=== PATIENT | female | born 1995 | race Caucasian/White ===

== ENCOUNTER 2017-09-09 19:31 | Emergency (ER) | payer BC, MEDICAID ==
[2017-09-09 19:54] VITALS: BP 120/74; PULSE 98; RESP 18; TEMP 98.2; O2SAT 100
[2017-09-09 20:23] LABS: URINE APPEARANCE CLEAR (CLEAR); URINE BILIRUBIN NEGATIVE (NEGATIVE); URINE BLOOD NEGATIVE (NEGATIVE); URINE COLOR YELLOW (YELLOW); URINE GLUCOSE (UA) NEGATIVE (NEGATIVE); URINE KETONE NEGATIVE (NEGATIVE); URINE LEUKOCYTE ESTERASE TRACE Leu/uL (NEGATIVE); URINE PROTEIN NEGATIVE mg/dL (<30 mg/dL); URINE UROBILINOGEN 0.2 E.U./dL (<1 E.U./dL)
[2017-09-09 20:25] LABS: URINE EPITHELIAL CELLS 0 - 2 /hpf (0-5); URINE RBC 0 - 2 /hpf (0-2)
[2017-09-09 20:26] LABS: URINE BACTERIA SMALL (NEG)
[2017-09-09 21:08] LABS: BASO # 0.02 K/mm3 (0.0-2.0); BASO % 0.2 % (0.0-3.0); EOS % 0.1 % (1.5-5.0); GRAN # 6.37 (1.4-6.5); LYMPH # 2.1 (1.2-3.4); LYMPH % 22.8 % (22.0-35.0); MEAN CORPUSCULAR HEMOGLOBIN 27.6 pg (25.0-35.0); MEAN CORPUSCULAR HGB CONC 34.1 g/dl (31.0-37.0); MEAN PLATELET VOLUME 9.3 fl (7.0-11.0); MONO # 0.6 (0.1-0.6); MONO % 6.9 % (1.0-6.0); RED CELL DISTRIBUTION WIDTH 12.3 % (11.5-14.5); WHITE BLOOD COUNT 9.1 10^3/ul (4.5-11.0)
--- NOTE | 2017-09-09 21:11 | ED PDOC ---
Arrival/HPI <Ata Zhao - Last Filed: 09/09/17 22:49> - General Historian: Patient - History of Present Illness Symptom Onset: Sudden Symptom Course: Unchanged Activities at Onset: Rest Context: Home <Makenzie Goodman PA-C - Last Filed: 09/09/17 23:29> - General Chief Complaint: Anxiety Time Seen by Provider: 09/09/17 20:06 - History of Present Illness Narrative History of Present Illness (Text): 09/09/17 21:00 A 21 year old female, whose past medical history includes depression, compliant with her Seroquel medication, presents to the emergency department complaining of feeling lonely, sad and depressed. Patient feels like she is not treated well by parents. Patient denies any suicidal ideation, homicidal ideation, auditory hallucinations. Denies any headache, fever, chest pain, shortness of breath, abdominal pain or any other complaints at this time. (Makenzie Goodman PA-C) Past Medical History - Provider Review Nursing Documentation Reviewed: Yes - Psychiatric Hx Depression: Yes Hx Substance Use: No <Makenzie Goodman PA-C - Last Filed: 09/09/17 23:29> Family/Social History - Physician Review Nursing Documentation Reviewed: Yes Family/Social History: No Known Family HX Smoking Status: n Hx Alcohol Use: No Hx Substance Use: No <Makenzie Goodman PA-C - Last Filed: 09/09/17 23:29> Allergies/Home Meds <Ata Zhao - Last Filed: 09/09/17 22:49> <Makenzie Goodman PA-C - Last Filed: 09/09/17 23:29> Allergies/Adverse Reactions: Allergies Penicillins Allergy (Verified 09/09/17 19:54) RASH Home Medications: Home Meds Medication Instructions Recorded Confirmed QUEtiapine [SEROquel] 25 mg PO HS 09/09/17 09/09/17 Review of Systems - Physician Review All systems were reviewed & negative as marked: Yes - Review of Systems Constitutional: absent: Fevers Respiratory: absent: SOB Cardiovascular: absent: Chest Pain Gastrointestinal: absent: Abdominal Pain Neurological: absent: Headache Psychiatric: Depression. absent: Suicidal Ideation, Other (homicidal ideation) <Makenzie Goodman PA-C - Last Filed: 09/09/17 23:29> Physical Exam Vital Signs Reviewed: Yes Temperature: Afebrile Blood Pressure: Normal Pulse: Regular Respiratory Rate: Normal Appearance: Positive for: Well-Appearing, Non-Toxic, Comfortable Pain Distress: None Mental Status: Positive for: Alert and Oriented X 3 - Systems Exam Head: Present: Atraumatic, Normocephalic Pupils: Present: PERRL Extroacular Muscles: Present: EOMI Conjunctiva: Present: Normal Mouth: Present: Moist Mucous Membranes Neck: Present: Normal Range of Motion Respiratory/Chest: Present: Clear to Auscultation, Good Air Exchange. No: Respiratory Distress, Accessory Muscle Use Cardiovascular: Present: Regular Rate and Rhythm, Normal S1, S2. No: Murmurs Abdomen: Present: Normal Bowel Sounds. No: Tenderness, Distention, Peritoneal Signs Back: Present: Normal Inspection Upper Extremity: Present: Normal Inspection. No: Cyanosis, Edema Lower Extremity: Present: Normal Inspection. No: Edema Neurological: Present: GCS=15, CN II-XII Intact, Speech Normal Skin: Present: Warm, Dry, Normal Color. No: Rashes Psychiatric: Present: Alert, Oriented x 3, Depressed Mood <Makenzie Goodman PA-C - Last Filed: 09/09/17 23:29> Vital Signs Temp Pulse Resp BP Pulse Ox 09/09/17 19:43 98.2 F 98 H 18 120/74 100 Medical Decision Making <Ata Zhao - Last Filed: 09/09/17 22:49> - Lab Interpretations I have reviewed the lab results: Yes - EKG Interpretation Interpreted by ED Physician: Yes Type: 12 lead EKG <Makenzie Goodman PA-C - Last Filed: 09/09/17 23:29> ED Course and Treatment: 09/09/17 20:58 Impression: A 21 year old female with depression. Patient denies any homicidal ideation, suicidal ideation. Plan: -- EKG -- labs -- chest xray -- Urinalysis -- Reassess and disposition Progress Notes: 09/09/17 22:00 CXR : NAD, as read by JAIME EKG : NSR at 91 bpm, (-) acute ST chnages, as read by JAIME [facility] [place] (-) Labs reviewed : UA +UTI. Rest of the labs are wnl. Patient is medically cleared for PES evaluation. After PES evaluation, plan will be for further outpatient follow up as instructed by PES. Advised to return to the emergency room at any time for any new or worsening symptoms. Patient states she fully agrees with and understands discharge instructions. States that she agrees with the plan and disposition. Verbalized and repeated discharge instructions and plan. I have given the patient opportunity to ask any additional questions. (Rex FUENTES,Makenzie Heredia) - Lab Interpretations Lab Results: 09/09/17 20:47 09/09/17 20:47 Lab Results 09/09/17 20:47: Alcohol, Quantitative < 10 09/09/17 20:47: Sodium 143, Potassium 3.9, Chloride 105, Carbon Dioxide 27, Anion Gap 15, BUN 13, Creatinine 0.8, Est GFR ( Amer) > 60, Est GFR (Non- Af Amer) > 60, Random Glucose 107, Calcium 9.2, Total Bilirubin 0.5, AST 28, ALT 28, Alkaline Phosphatase 60, Total Protein 7.3, Albumin 4.2, Globulin 3.1, Albumin/Globulin Ratio 1.4 09/09/17 20:47: WBC 9.1, RBC 4.57, Hgb 12.6, Hct 37.0, MCV 81.0, MCH 27.6, MCHC 34.1, RDW 12.3, Plt Count 278, MPV 9.3, Gran % 70.0 H, Lymph % (Auto) 22.8, [place] % (Auto) 6.9 H, Eos % (Auto) 0.1 L, Baso % (Auto) 0.2, Gran # 6.37, Lymph # 2.1, [place] # 0.6, Eos # 0.0, Baso # 0.02 09/09/17 20:15: Urine Opiates Screen Negative, Urine Methadone Screen Negative, Ur Barbiturates Screen Negative, Ur Phencyclidine Scrn Negative, Ur Amphetamines Screen Negative, U Benzodiazepines Scrn Negative, U Oth Cocaine Metabols Negative, U Cannabinoids Screen Negative 09/09/17 20:15: Urine Color Yellow, Urine Appearance Clear, Urine pH 6.0, Ur Specific [place] 1.010, Urine Protein Negative, Urine Glucose (UA) Negative, Urine Ketones Negative, Urine Blood Negative, Urine Nitrate Negative, Urine Bilirubin Negative, Urine Urobilinogen 0.2, Ur Leukocyte Esterase Trace H, Urine RBC 0 - 2, Urine WBC 2 - 5, Ur Epithelial Cells 0 - 2, Urine Bacteria Small - RAD Interpretation Radiology Orders: 09/09/17 20:30 CHEST PORTABLE [RAD] Stat - PA / [employer]IDGE [employer]SEM[employer]ER / Resident Statement WM has reviewed & agrees with the documentation as recorded. / has examined the patient and agrees with the treatment plan. <Ata Zhao - Last Filed: 09/09/17 22:49> - PA / [employer] BRIDGE ASSEMBLER / Resident Statement / has reviewed & agrees with the documentation as recorded. - Scribe Statement The provider has reviewed the documentation as recorded by the Scribe <Makenzie Goodman PA-C - Last Filed: 09/09/17 23:29> - Scribe Statement Jigna Wang Provider Scribe Attestation: All medical record entries made by the Scribe were at my direction and personally dictated by me. I have reviewed the chart and agree that the record accurately reflects my personal performance of the history, physical exam, medical decision making, and the department course for this patient. I have also personally directed, reviewed, and agree with the discharge instructions and disposition. (Makenzie Goodman PA-C) Disposition/Present on Arrival <Ata Zhao - Last Filed: 09/09/17 22:49> - Present on Arrival Any Indicators Present on Arrival: No History of DVT/PE: No History of Uncontrolled Diabetes: No Urinary Catheter: No History of Decub. Ulcer: No History Surgical Site Infection Following: None - Disposition Have Diagnosis and Disposition been Completed?: Yes Disposition Time: 22:25 Patient Plan: Discharge <Makenzie Goodman PA-C - Last Filed: 09/09/17 23:29> - Disposition Diagnosis: Depressed, UTI (urinary tract infection) Disposition: HOME/ ROUTINE Condition: STABLE Discharge Instructions (ExitCare): Depression (ED), Urinary Tract Infection in Women (ED) Print Language: URDU Prescriptions: Nitrofurantoin Macrocrystals [Macrobid] 100 mg PO BID #14 cap Referrals: Sherly Alvarado MD [Primary Care Provider] - Follow up with primary Forms: [employer] ([place]izen [place])
[2017-09-09 21:18] LABS: ALB/GLOB RATIO 1.4 (1.1-1.8); ALKALINE PHOSPHATASE 60 U/L (38-126); ALT/SGPT 28 U/L (7-56); AST/SGOT 28 U/L (14-36); BILIRUBIN,TOTAL 0.5 mg/dL (0.2-1.3); BLOOD UREA NITROGEN 13 mg/dL (7-21); CALCIUM 9.2 mg/dL (8.4-10.5); CARBON DIOXIDE 27 mmol/L (21-33); CHLORIDE 105 mmol/L (98-107); GFR AFRICAN-AMERICAN > 60; GLUCOSE,RANDOM 107 mg/dL (70-110); POTASSIUM 3.9 mmol/L (3.6-5.0); SODIUM 143 mmol/L (132-148); TOTAL PROTEIN 7.3 g/dL (5.8-8.3)
--- NOTE | 2017-09-10 08:32 | RAD ---
HISTORY: psych eval COMPARISON: No prior. FINDINGS: LUNGS: No active pulmonary disease. PLEURA: No significant pleural effusion identified, no pneumothorax apparent. CARDIOVASCULAR: Normal. OSSEOUS STRUCTURES: No significant abnormalities. VISUALIZED UPPER ABDOMEN: Normal. OTHER FINDINGS: None. IMPRESSION: No interval acute cardiopulmonary disease appreciated.
--- NOTE | 2017-09-10 10:03 | CARD ---
APPROVED REPORT EKG Measurement Heart [id number] <Conclusion> Normal sinus rhythm Small q wave lll Normal ECG
== END 2017-09-09 22:53 | disposition home or self-care (01) ==
LOC: ED 19:31
DX: F32.9 Major depressive disorder, single episode, unspecified (principal); N39.0 Urinary tract infection, site not specified